=== PATIENT | male | born 1985 | race Caucasian/White ===

== ENCOUNTER 2017-06-30 20:32 | Emergency (ER) | payer OTHER ==
--- NOTE | 2017-06-30 20:43 | PDOC ---
History of Present Illness - General History Source: Patient Exam Limitations: No Limitations - History of Present Illness Initial Comments: 06/30/17 21:04 The patient is a 31 year old male, with a significant past medical history of hemorrhoids, who presents to the emergency department complaining of rectal pain since this morning. Patient reports he does heavy lifting at work and has a history of hemorrhoids. The patient reports his pain is similar to when he has had hemorrhoids in the past, and thinks this is a flare. He describes his pain as a pressure. Patient reports pain is exacerbated when seated and alleviated when lying on his abdomen. He denies any associated nausea, vomiting , diarrhea, or constipation. He denies any fever or chills. PAST MEDICAL HISTORY: Hemorrhoids PAST SURGICAL HISTORY: No significant history FAMILY HISTORY: No pertinent history SOCIAL HISTORY: Pt lives with family and is employed. Does heavy lifting at work. MEDICATIONS: Reviewed ALLERGIES: As per nursing notes General: No fevers or chills, no weakness, no weight loss HEENT: No change in vision. No sore throat,. No ear pain CardioVascular: No chest pain or shortness of breath Respiratory:No cough, or wheezing. Gastrointestinal: Yes rectal pain, hemorrhoid. No nausea, vomiting, diarrhea or constipation, No rectal bleeding Genitourinary: No dysuria, hematuria, or frequency Musculoskeletal: No joint or muscle pain or swelling Neurologic: No headache, vertigo, dizziness or loss of consciousness Psychiatric: nor depression Skin: No rashes or easy bruising Endocrine: no increased thirst or abnormal weight change Allergic: no skin or latex allergy All other systems reviewed and normal GENERAL: The patient is awake, alert, and fully oriented, in no acute distress. HEAD: Normal with no signs of trauma. EYES: Pupils equal, round and reactive to light, extraocular movements intact, sclera anicteric, conjunctiva clear. RECTAL: Large hemorrhoid at approximately 9 oclock. Hemorrhoid is firm, tender, and approximately 2 cm in length EXTREMITIES: Normal range of motion, no edema. NEUROLOGICAL: Normal speech, normal gait. PSYCH: Normal mood, normal affect. SKIN: Warm, Dry, normal turgor, no rashes or lesions noted. <Ivan Flores - Last Filed: 06/30/17 21:04> - General History Source: Patient Exam Limitations: No Limitations - History of Present Illness Initial Comments: Procedure note: Hemorrhoid was anesthetized with approximately 1 mL 1% lidocaine no epinephrine Hemorrhoid was incised with #9 scalpel and clot removed Dressing was applied patient tolerated well 06/30/17 21:05 Assessment and plan: This is a 31-year-old male who does a lot of lifting on his job and comes in complaining of a hemorrhoid. Patient has a history of a hemorrhoid in the past Hemorrhoid was anesthetized and incised and clot removed, post clot removal there was minimal bleeding. Dressing was applied and patient told to remove the dressing tomorrow and start warm soaks to the area. Patient discharged home <Kleber De La Cruz I - Last Filed: 06/30/17 21:16> - General Chief Complaint: Hemorrhoids Stated Complaint: HEMORRHOID Time Seen by Provider: 06/30/17 20:43 Past History <Ivan Flores - Last Filed: 06/30/17 21:04> <Kleber De La Cruz I - Last Filed: 06/30/17 21:16> - Past Medical History Allergies/Adverse Reactions: Allergies Allergy/AdvReac Type Severity Reaction Status Date / Time No Known Allergies Allergy Verified 06/30/17 20:40 Home Medications: Ambulatory Orders NK [No Known Home Medication] 06/30/17 *Physical Exam - Vital Signs Last Vital Signs Temp Pulse Resp BP Pulse Ox 98.3 F 47 L 15 127/80 98 06/30/17 20:34 06/30/17 20:34 06/30/17 20:34 06/30/17 20:34 06/30/17 20:34 <Ivan Flroes - Last Filed: 06/30/17 21:04> *DC/Admit/Observation/Transfer - Attestations Scribe Attestion: 06/30/17 21:04 Documentation prepared by Ivan Flores, acting as biomedical engineering technologist for Kleber De La Cruz MD. <Ivan Flores - Last Filed: 06/30/17 21:04> - Discharge Dispostion Admit: No <Kleber De La Cruz I - Last Filed: 06/30/17 21:16> Diagnosis at time of Disposition: External hemorrhoid, thrombosed - Discharge Dispostion Disposition: HOME Condition at time of disposition: Good - Referrals Referrals: Wm Suarez MD [Staff Physician] - - Patient Instructions Printed Discharge Instructions: DI for Hemorrhoids Additional Instructions: For the pain you can take Tylenol or Motrin as directed on the bottle. Try to leave the dressing in place until tomorrow morning at which time you can remove it and start warm soaks to the area. Do the warm soaks 3-4 times a day for the next 3-4 days His symptoms do not resolve by early next week follow-up with Dr. Suarez who is a surgeon. Return to the emergency department immediately with ANY new, persistent or worsening symptoms. Continue any medications as previously prescribed by your physician. You should follow up with your primary doctor as soon as possible regarding today's emergency department visit. . Please make sure your doctor reviews the results of your emergency evaluation. Thank you for coming to the Emergency Department today for your care. It was a pleasure to see you today. Please note that your evaluation is INCOMPLETE until you follow-up with your doctor. - Post Discharge Activity Forms/Work/School Notes: Back to Work
[2017-06-30 21:05] VITALS: BP 127/80; PULSE 47; TEMP 98.3; BMI 32.3
[2017-06-30] MEDS ORDERED: KETOROLAC TROMETHAMINE 30 MG/1 ML VIAL IM ONE (21:07)
[2017-06-30] MEDS ORDERED: KETOROLAC TROMETHAMINE 30 MG/1 ML VIAL ONE (21:11)
== END 2017-06-30 21:19 | disposition home or self-care (01) ==
LOC: FER 20:32
PROC: 3E0233Z Introduction of Anti-inflammatory into Muscle, Percutaneous Approach (ICD-10-PCS; principal; 2017-06-30)
DX: K64.5 Perianal venous thrombosis (principal)
CPT/HCPCS: 99282-25

== ENCOUNTER 2017-07-03 11:57 | Emergency (ER) | payer OTHER ==
[2017-07-03 12:08] VITALS: BP 123/77; PULSE 52; TEMP 98.3; BMI 32.3
--- NOTE | 2017-07-03 12:19 | PDOC ---
History of Present Illness - General Chief Complaint: Revisit,Wound Recheck Stated Complaint: WOUND CHECK Time Seen by Provider: 07/03/17 12:04 History Source: Patient Exam Limitations: No Limitations - History of Present Illness Initial Comments: 31 yo M with history of hemorrhoids presents with hemorrhoid pain. He presented to the ED 3 days ago for the same, found to have thrombosed hemorrhoid for which the clot was removed. He has not had any additional treatment since discharge, and states that his pain is unchanged. No fever, bleeding. He has been taking ibuprofen for pain. Past History - Past Medical History Allergies/Adverse Reactions: Allergies Allergy/AdvReac Type Severity Reaction Status Date / Time No Known Allergies Allergy Verified 06/30/17 20:40 Home Medications: Ambulatory Orders Docusate Sodium [Colace -] 100 mg PO BID #28 capsule 07/03/17 Hydrocortisone Acetate [Anusol Hc Suppository -] 25 mg RC BID #28 supp.rect Sennosides [Senna] 2 tab PO HS #14 tablet 07/03/17 Witch Chel 50% (Tucks) [Tucks Witch Chel Pads] 1 pad TP ONCE #40 pad 07/03/17 COPD: No - Suicide/Smoking/Psychosocial Hx Smoking History: Never smoked Have you smoked in the past 12 months: No Hx Alcohol Use: Yes (OCCASIONAL) Drug/Substance Use Hx: No Substance Use Type: None Review of Systems - Review of Systems Able to Perform ROS?: Yes Comments:: GENERAL/CONSTITUTIONAL: No fever or chills. No weakness. HEAD, EYES, EARS, NOSE AND THROAT: No change in vision. No ear pain or discharge. No sore throat. CARDIOVASCULAR: No chest pain or shortness of breath. RESPIRATORY: No cough, wheezing, or hemoptysis. GASTROINTESTINAL: No nausea, vomiting, diarrhea or constipation. GENITOURINARY: No dysuria, frequency, or change in urination. +Rectal pain. MUSCULOSKELETAL: No joint or muscle swelling or pain. No neck or back pain. SKIN: No rash NEUROLOGIC: No headache, vertigo, loss of consciousness, or change in strength/ sensation. ENDOCRINE: No increased thirst. No abnormal weight change. HEMATOLOGIC/LYMPHATIC: No anemia, easy bleeding, or history of blood clots. ALLERGIC/IMMUNOLOGIC: No hives or skin allergy. *Physical Exam - Vital Signs Last Vital Signs Temp Pulse Resp BP Pulse Ox 98.3 F 52 L 15 123/77 99 07/03/17 11:58 07/03/17 11:58 07/03/17 11:58 07/03/17 11:58 07/03/17 11:58 - Physical Exam Comments: GENERAL: Awake, alert, and fully oriented, in no acute distress HEAD: No signs of trauma EYES: PERRLA, EOMI, sclera anicteric, conjunctiva clear ENT: Auricles normal inspection, hearing grossly normal, nares patent, oropharynx clear without exudates. Moist mucosa NECK: Normal ROM, supple, no lymphadenopathy, JVD, or masses LUNGS: Breath sounds equal, clear to auscultation bilaterally. No wheezes, and no crackles HEART: Regular rate and rhythm, normal S1 and S2, no murmurs, rubs or gallops ABDOMEN: Soft, nontender, normoactive bowel sounds. No guarding, no rebound. No masses EXTREMITIES: Normal range of motion, no edema. No clubbing or cyanosis. No cords, erythema, or tenderness NEUROLOGICAL: Cranial nerves II through XII grossly intact. Normal speech, normal gait SKIN: Warm, Dry, normal turgor, no rashes or lesions noted. RECTAL: +Large tender hemorrhoid at 9 o'clock position. No active bleeding. 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 Will treat with Tucks, anusol, sitz baths, and stool softeners. F/ u with surgery for definitive treatment. *DC/Admit/Observation/Transfer Diagnosis at time of Disposition: External hemorrhoids - Discharge Dispostion Disposition: HOME Condition at time of disposition: Stable Admit: No - Prescriptions Prescriptions: Docusate Sodium [Colace -] 100 mg PO BID #28 capsule Hydrocortisone Acetate [Anusol Hc Suppository -] 25 mg RC BID #28 supp.rect Sennosides [Senna] 2 tab PO HS #14 tablet Witch Chel 50% (Tucks) [Tucks Witch Chel Pads] 1 pad TP ONCE #40 pad - Referrals - Patient Instructions Printed Discharge Instructions: DI for Hemorrhoids Additional Instructions: Use anusol dos veces por da segn lo prescrito. Use colace y sen para suavizar las heces. Aplica almohadillas Tucks para el dolor. Use un mark de asiento con sales de Epsom para el dolor. Almohada Donut para mayor comodidad. Felipe un seguimiento con el michelle Suarez. Llame para sridevi lorena. Print Language: [place] - Post Discharge Activity
== END 2017-07-03 13:03 | disposition home or self-care (01) ==
LOC: FER 11:57
DX: K64.4 Residual hemorrhoidal skin tags (principal)
CPT/HCPCS: 99281-25